=== PATIENT | female | born 1965 | race Two or more races ===

== ENCOUNTER 2018-02-03 17:30 | Emergency (ER) | payer OTHER ==
[~2018-02-03] VITALS: Ht 147.3 cm; Wt 73.0 kg
[2018-02-03] MEDS ORDERED: MORPHINE SULFATE 4 MG/ML, 1ML IVPush PRN (18:00)
[2018-02-03] MEDS ORDERED: MORPHINE SULFATE 4 MG/ML, 1ML ONE (18:03)
[2018-02-03 18:28] LABS: BASOPHILS # (AUTO) 0.03 x10^3/uL (0-0.1); BASOPHILS % (AUTO) 0 % (0-1); EOSINOPHILS # (AUTO) 0.35 x10^3/uL (0-0.4); EOSINOPHILS % (AUTO) 4 % (1-7); LYMPHOCYTES % (AUTO) 33 % (22-44); MD NO; MEAN CORPUSCULAR HGB CONC 33.6 g/dL (32.4-35.8); MEAN CORPUSCULAR VOLUME 89.2 fL (80-100); MEAN PLATELET VOLUME 7.2 fL (7.4-10.4); MONOCYTES # (AUTO) 0.56 x10^3/uL (0.2-0.8); MONOCYTES % (AUTO) 6 % (2-9); NEUTROPHILS # (AUTO) 5.17 x10^3/uL (1.8-6.8); NEUTROPHILS % (AUTO) 57 % (42-75); PLATELET COUNT 322 x10^3/uL (130-400); RED CELL DISTRIBUTION WIDTH 14.7 % (9.6-15.2)
[2018-02-03 18:32] LABS: ALANINE AMINOTRANSFERASE 26 U/L (12-78); ALBUMIN 3.5 g/dL (3.4-5.0); ANION GAP 7 mmol/L (5-15); CALCIUM 8.4 mg/dL (8.5-10.1); CHLORIDE 108 mmol/L (98-107); CREATININE 0.62 mg/dL (0.55-1.02)
[2018-02-03 18:37] LABS: ALKALINE PHOSPHATASE 101 U/L (45-117); BILIRUBIN,TOTAL 0.2 mg/dL (0.2-1.0); TOTAL PROTEIN 7.1 g/dL (6.4-8.2); TROPONIN I < 0.015 ng/mL (0.000-0.045)
[2018-02-03 20:58] LABS: TROPONIN I < 0.015 ng/mL (0.000-0.045)
[2018-02-03 21:16] VITALS: BP 126/60
== END 2018-02-03 21:39 | disposition home or self-care (01) ==
LOC: ED 18:39
DX: R07.89 Other chest pain (principal); I10 Essential (primary) hypertension
CPT/HCPCS: 36415; 71045; 80053; 84484; 85025; 93005; 96374